=== PATIENT | female | born 1965 | race Two or more races ===

== ENCOUNTER 2016-12-07 21:12 | Emergency (ER) | payer OTHER ==
[~2016-12-07] VITALS: Ht 165.1 cm; Wt 71.7 kg
[~2016-12-07 21:12] MED LIST: IBUPROFEN600 MG ORAL; NKM
--- NOTE | 2016-12-07 21:41 | Emergency Room Report ---
History of Present Illness General Chief Complaint: Upper Extremity Injury Source: Patient Present Illness HPI This is a 51-year-old female who is part of the cleaning crew here. She was cleaning a room upstairs in one of the palate from the ceiling fell onto her arm. She has an abrasion to her left arm. No other injury. Did not pass out. No pain. Allergies: Coded Allergies: No Known Allergies (Unverified , 12/09/15) Patient History Past Medical History: see triage record, old chart reviewed Past Surgical History: none Pertinent Family History: none Social History: Denies: smoking Last Menstrual Period: 3 weeks Now: No Immunizations: UTD Reviewed Nursing Documentation: PMH: Agreed, PSxH: Agreed Nursing Documentation-PMH Past Medical History: No Stated History Review of Systems Eye: Denies: eye pain, blurred vision ENT: Denies: ear pain, nose congestion, throat swelling Respiratory: Denies: cough, shortness of breath Cardiovascular: Denies: chest pain, palpitations Gastrointestinal: Denies: abdominal pain, diarrhea, nausea, vomiting Musculoskeletal: Denies: back pain, joint pain Skin: Denies: rash Neurological: Denies: headache, numbness Endocrine: Denies: increased thirst, increased urine Hematologic/Lymphatic: Denies: easy bruising All Other Systems: negative except mentioned in HPI Physical Exam Vital Signs Date Time Temp Pulse Resp B/P (MAP) Pulse Ox O2 Delivery O2 Flow Rate FiO2 12/07/16 21:19 97.9 86 16 132/88 98 Room Air vitals normal Sp02 EP Interpretation: reviewed, normal General Appearance: well appearing, no apparent distress, alert Head: normocephalic, atraumatic Eyes: bilateral eye PERRL, bilateral eye EOMI ENT: hearing grossly normal, normal pharynx Neck: full range of motion, supple, no meningismus Respiratory: chest non-tender, lungs clear, normal breath sounds Cardiovascular #1: regular rate, rhythm, no murmur Gastrointestinal: normal bowel sounds, non tender, no mass, no organomegaly, no bruit, non-distended Musculoskeletal: back normal, gait/station normal, normal range of motion, other - Superficial asion to her left forearm Neurologic: alert, oriented x3 Psychiatric: mood/affect normal Skin: warm/dry Medical Decision Making Diagnostic Impression: Primary Impression: Abrasion of left forearm, initial encounter ER Course Patient with superficial abrasion to the forearm. No deep injury. We'll discharge home. No need for x-ray Last Vital Signs Date Time Temp Pulse Resp B/P (MAP) Pulse Ox O2 Delivery O2 Flow Rate FiO2 12/07/16 21:19 97.9 86 16 132/88 98 Room Air Status: unchanged Disposition: HOME, SELF-CARE Condition: Stable Additional Instructions: Followup with employee health as needed. Return if symptom worsen. LUX JACOBO M.D. Dec 07, 2016 21:41
[2016-12-07] MEDS ORDERED: Bacitracin Oint UD TOPIC ONE (21:45)
[2016-12-07 21:59] VITALS: BP 132/88
== END 2016-12-07 22:00 | disposition home or self-care (01) ==
LOC: EMR 21:37
DX: S50.812A Abrasion of left forearm, initial encounter (principal); W20.8XXA Other cause of strike by thrown, projected or falling object, initial encounter; Y92.89 Other specified places as the place of occurrence of the external cause; Y99.0 Civilian activity done for income or pay
CPT/HCPCS: 99282